=== PATIENT | female | born 2000 | race Caucasian/White ===

== ENCOUNTER 2024-01-14 16:43 | Emergency (ER) | payer OTHER ==
[~2024-01-14] VITALS: Ht 160 cm; Wt 51.4 kg
[2024-01-14] MEDS: CYCLOBENZAPRINE 10MG TABLET PO ONE (17:46)
[2024-01-14] MEDS: KETOROLAC 30 MG/ML 1ML VIAL IM ONE (17:46)
[2024-01-14 19:22] VITALS: BP 122/69; TEMP 98.1; O2SAT 100
== END 2024-01-14 19:24 | disposition home or self-care (01) ==
LOC: M ED 16:43
DX: S39.92XA Unspecified injury of lower back, initial encounter (principal); W19.XXXA Unspecified fall, initial encounter; Y92.019 Unspecified place in single-family (private) house as the place of occurrence of the external cause; Y93.9 Activity, unspecified; Y99.9 Unspecified external cause status
CPT/HCPCS: 70450; 71111; 72125; 96372; 99283; J1885

== ENCOUNTER 2025-01-21 14:33 | Emergency (ER) | payer OTHER ==
[~2025-01-21] VITALS: Ht 160 cm; Wt 51.9 kg
[2025-01-21 14:36] VITALS: BP 131/83; TEMP 97.9; O2SAT 100
== END 2025-01-21 20:23 | disposition left against medical advice (07) ==
LOC: M ED 14:33
DX: Z53.21 Procedure and treatment not carried out due to patient leaving prior to being seen by health care provider (principal)

== ENCOUNTER 2025-08-05 15:05 | Emergency (ER) | payer SELFPAY ==
[~2025-08-05] VITALS: Ht 160 cm; Wt 52.5 kg
[~2025-08-05 15:05] MED LIST: ONDA-282 PO; PROT1TAB2 PO
[2025-08-05 17:05] LABS: KETONE, URINE AUTO RFX NEGATIVE (NEGATIVE); NITRITE, URINE AUTO RFX NEGATIVE (NEGATIVE); RBC, URINE AUTO RFX 0 /HPF (0-3); SQUAM EPITHELIAL CELL UR AURFX 2 /HPF (0-6); WBC, URINE AUTO RFX 6 /HPF (0-3)
[2025-08-05 17:22] LABS: BASO # 0.1 10^3/uL (0.0-0.2); BASO % 0.7 % (0.0-1.0); EOS # 0.1 10^3/uL (0.0-0.5); EOS % 0.8 % (0.0-3.0); LYMPH # 2.5 10^3/uL (1.5-5.0); LYMPH % 32.4 % (24.0-44.0); MONO # 0.7 10^3/uL (0.0-0.8); MONO % 8.7 % (2.0-8.0); NEUTROPHILS # 4.4 10^3/uL (1.5-8.5); NEUTROPHILS % 57.1 % (36.0-66.0); PLATELET COUNT, AUTOMATED 249 10^3/uL (150-450)
[2025-08-05 17:35] LABS: ALT/SGPT 14 U/L (7.0-40); AST/SGOT 18 U/L (<34); CALCIUM LEVEL 9.8 MG/DL (8.5-10.1); CARBON DIOXIDE LEVEL 26 MMOL/L (20-31); CHLORIDE LEVEL 104 MMOL/L (98-107); CREATININE FOR GFR 0.85 MG/DL (0.55-1.30); GLOMERULAR FILTRATION RATE > 90.0 (>60); POTASSIUM SERUM 4.1 MMOL/L (3.5-5.1); SODIUM LEVEL 140 MMOL/L (136-145)
[2025-08-05 17:52] LABS: LEUKOCYTE ESTERASE UR AUTO RFX TRACE (NEGATIVE)
[2025-08-05 18:01] LABS: HCG, SERUM QUALITATIVE NEGATIVE (NEGATIVE)
[2025-08-05] MEDS: ACETAMINOPHEN 500 MG TAB PO ONE (19:37)
[2025-08-05] MEDS ORDERED: ISOVUE-370 76% 100 ML VIAL As Ordered ONE (19:49)
[2025-08-05 21:59] VITALS: BP 120/68; TEMP 98.1; O2SAT 99
== END 2025-08-05 22:00 | disposition home or self-care (01) ==
LOC: M ED 15:05
DX: K52.9 Noninfective gastroenteritis and colitis, unspecified (principal); N85.00 Endometrial hyperplasia, unspecified; N83.291 Other ovarian cyst, right side; N83.292 Other ovarian cyst, left side; F17.290 Nicotine dependence, other tobacco product, uncomplicated; F10.10 Alcohol abuse, uncomplicated
CPT/HCPCS: 36415; 74177; 76856; 80048; 80076; 81001; 82150; 83605; 83690; 84703; 85025; 87086; 93976; 99283; Q9967